=== PATIENT | male | born 1985 | race African-American/Black ===

== ENCOUNTER 2018-11-19 21:31 | Inpatient (IN) | payer MEDICAID ==
[~2018-11-19] VITALS: Ht 180.3 cm; Wt 70.3 kg
[2018-11-19] MEDS ORDERED: HYDROmorphone 1mg/ml Carpuject IVP ONE (22:00)
[2018-11-19] MEDS ORDERED: Isovue-300 100ml vial INJ PRN (22:00)
[2018-11-19] MEDS ORDERED: Metoclopramide 10mg/2ml Inj IVP ONE (22:00)
[2018-11-19] MEDS ORDERED: DiphenhydrAMINE 50mg/ml Inj IVP ONE (22:00)
[2018-11-19 22:10] VITALS: BP 108/67
--- NOTE | 2018-11-19 22:30 | NUR ---
ER Nurse Note: Pt came from home c/o RLQ pain associated with n/v since 11/17. Pt stated he has an ostomy on the LT mid abd; output is orange tinged lquid stool. Pt has a fistula on the RT side of abd; patent. Pt stated 02/15 pain. Will continue to montior.
[2018-11-19 22:53] LABS: BASOPHILS % (AUTO) 1.3 % (0.0-2.0); HEMOGLOBIN 11.4 G/DL (14.2-18.0); LYMPHOCYTES % (AUTO) 37.2 % (20.0-45.0); MEAN CORPUSCULAR VOLUME 82 FL (80-99); MONOCYTES % (AUTO) 4.8 % (1.0-10.0); NEUTROPHILS % (AUTO) 53.6 % (45.0-75.0); PLATELET COUNT 221 K/UL (150-450); RED BLOOD COUNT 4.28 M/UL (4.70-6.10); RED CELL DISTRIBUTION WIDTH 17.6 % (11.6-14.8); WHITE BLOOD COUNT 6.5 K/UL (4.8-10.8)
[2018-11-19 23:05] LABS: ANION GAP 3 mmol/L (5-15); BLOOD UREA NITROGEN 7 mg/dL (7-18); CALCIUM 9.1 MG/DL (8.5-10.1); CARBON DIOXIDE 28 MMOL/L (21-32); CHLORIDE 108 MMOL/L (98-107); CREATININE 0.8 MG/DL (0.55-1.30); POTASSIUM 3.3 MMOL/L (3.5-5.1); SODIUM 139 MMOL/L (136-145)
[2018-11-19 23:09] LABS: ALANINE AMINOTRANSFERASE 22 U/L (12-78); ALBUMIN 3.2 G/DL (3.4-5.0); ALBUMIN/GLOBULIN RATIO 0.7 (1.0-2.7); ALKALINE PHOSPHATASE 114 U/L (46-116); ASPARTATE AMINO TRANSFERASE 17 U/L (15-37); BILIRUBIN,TOTAL 0.3 MG/DL (0.2-1.0)
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
--- NOTE | 2018-11-19 23:18 | NUR ---
ER Nurse Note: Pt refused to drink contrast for CT of stomach; aware. Verbal order for CT without contrast; Chapo at radiology contacted and aware. Pt refused urine as well. Pt asleep; VSS. IV fluids infusing. Will continue to montior.
[2018-11-20] MEDS ORDERED: HYDROmorphone 1 MG in NS 55 ML IV ONE (01:00)
[2018-11-20 01:08] VITALS: BP 100/70
--- NOTE | 2018-11-20 01:30 | NUR ---
ER Nurse Note: Pt vomited 100 cc of orange emesis, notifed, meds prescribed. Pt provided urine; sent to lab. All meds given, tolerating well. Pt resting in bed, no signs of distress, VSS. Pt asleep. All safety measures met; will continue to montior.
[2018-11-20 01:42] LABS: APPEARANCE,URINE CLEAR; BILIRUBIN, URINE NEGATIVE (NEGATIVE); COLOR,URINE PALE YELLOW; GLUCOSE, URINE (UA) NEGATIVE (NEGATIVE); KETONES,URINE NEGATIVE (NEGATIVE); LEUKOCYTE ESTERASE ,URINE NEGATIVE (NEGATIVE); NITRITE,URINE NEGATIVE (NEGATIVE); PH,URINE 6 (4.5-8.0); PROTEIN,URINE NEGATIVE (NEGATIVE); UROBILINOGEN,URINE NORMAL MG/DL (0.0-1.0)
[2018-11-20 02:35] VITALS: BP 110/74
--- NOTE | 2018-11-20 02:35 | NUR ---
ER Nurse Note: Report given to NAVDEEP Olivo in [place] for continuity of care. All orders completed per ERMD orders. Pt refused VRE/CRE; able to swab for MRSA. Pt a&ox4, VSS, no signs of distress. Pt ambulatory. All belongings accounted for, and taken with pt.
[2018-11-20 03:01] VITALS: BP 98/62
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
[2018-11-20] MEDS ORDERED: HYDROcodone/Acetamin 5/325 tab ORAL PRN (03:45)
[2018-11-20] MEDS ORDERED: D5 1/2NS w/KCl 20mEq 1,000 ML IV SCH (03:45)
--- NOTE | 2018-11-20 04:30 | NUR ---
NURSE NOTES: Pt refuses to take 40meq KCL tablet PO and [place] for pain po. Pt states that he wants Dilaudid first and he does not want any oral medications. D5 1/2Ns with 20mEq KCl running at 75ml/hr.
--- NOTE | 2018-11-20 04:51 | NUR ---
NURSE NOTES: Pt is asleep, no acute distress noted.
--- NOTE | 2018-11-20 06:12 | NUR ---
NURSE NOTES: Pt refuses blood draw for labs.
--- NOTE | 2018-11-20 06:20 | NUR ---
NURSE NOTE: Pt is resistive to care. Pt wants Dilaudid as pain medication first before he will take any other Meds. Pt is irritable. Pt states he has severe pain. Dr. Mansfield is called and message left explaining pt's request. Awaiting call back.
--- NOTE | 2018-11-20 06:30 | NUR ---
NURSE NOTES: Dr. Mansfield called back, no new orders received.
--- NOTE | 2018-11-20 07:30 | NUR ---
NURSE NOTES: Pt finally agreed to take [place] 5mg PO for pain.
--- NOTE | 2018-11-20 07:31 | NUR ---
HAND-OFF: Report given to Valerie Garrido RN.
--- NOTE | 2018-11-20 08:00 | NUR ---
NURSE NOTES: Received report from Geovani RN. Patient is awake alert and oriented during rounds, appears calm, medicated with [place] by nightshift nurse, denies N/V. Updated on plan of care for the day. Side rails upx2, bed low and locked, call light in reach. Will continue to monitor.
--- NOTE | 2018-11-20 10:14 | Diagnostic Imaging Report ---
Indication: Abdominal pain for 3 days Technique: Spiral acquisitions obtained through the abdomen and pelvis. No oral contrast utilized, per patient preference No IV contrast utilized, per patient preference.. Multiplanar reconstructions were generated. Total dose length product 494.52 mGycm. CTDIvol(s) 9.5 mGy. Dose reduction achieved using automated exposure control Comparison: None Findings: Exam is very limited the absence of enteric contrast. Scattered foci of gas are seen within the cutaneous tissues of the midline with suggestion of soft tissue tract tract communicating to the deeper bowel. There is a stoma in the left lower quadrant. This is reportedly a colostomy. Extensive surgical anastomoses are present deep to the stoma. There is also a Ally procedure demonstrated. Small bowel loops at the anastomosis are mildly dilated. Other small bowel loops are nondilated. The distal esophagus, stomach, duodenum are unremarkable. No free or loculated intraperitoneal gas or fluid is evident. Lack of IV contrast limits assessment of solid organs. The liver is unremarkable. The gallbladder is nondistended. No definite stones. No biliary ductal dilatation. The pancreas, spleen, adrenals, kidneys are unremarkable. No retroperitoneal or mesenteric mass or adenopathy. The included lung bases are clear. The bones are unremarkable. Impression: Very limited exam, as described Post surgical changes, as described Midline subcutaneous abnormality extending into the abdomen. Patient reportedly has a fistula at this location. No evidence of bowel obstruction or abnormal fluid collection This agrees with the preliminary interpretation provided overnight by [facility] teleradiology service. The CT scanner at [facility] is accredited by the [employer] and the scans are performed using protocols designed to limit radiation exposure to as low as reasonably achievable to attain images of sufficient resolution adequate for diagnostic evaluation.
--- NOTE | 2018-11-20 10:49 | NUR ---
AMA: Patient left AMA. Educated patient on the risks of leaving AMA including worsening of condition and . Patient stated that he understands the risks but still insisted on leaving. Removed IV intact. Patient ambulated off unit. Called the office of Dr. Mansfield and left message informing MD that patient left AMA. SEE AMA FORM.
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
--- NOTE | 2018-11-20 14:11 | NUR ---
CASE MANAGEMENT: INITIAL REVIEW 33 YO M PRESENTED TO OUR ED FROM HOME CC: ABD PAIN PMHx: COLOSTOMY. SI:ABD PAIN T 98.2 HR 85 RR 20 B/P 108/67 SATS 100% ON RA K 3.3 CL 108 IS: REGLAN IV X1 ZOFRAN IV X1 DILAUDID IV X1 NS BOLUS X1 BENADRYL IV X1 PATIENT ADMITTED TO MED/SURG 11/20/2018 @ 0129 DCP: PATIENT TO BE DISCHARGED TO HOME ONCE MEDICALLY CLEARED. PLAN OF CARE: CT ABD/PELVIS Impression: Very limited exam, as described Post surgical changes, as described Midline subcutaneous abnormality extending into the abdomen. Patient reportedly has a fistula at this location. Addendum: 11/20/18 at 1424 by Adriane Raygoza CM INTERQUAL MET
--- NOTE | 2018-11-21 19:35 | History & Physical ---
History and Physical History & Physicial patient left hospital prior my visit. Daniel Mansfield MD Nov 21, 2018 19:35
== END 2018-11-20 10:05 | disposition left against medical advice (07) | DRG 251 ==
LOC: EMR 22:10 → 3E 11-20 01:29 → EDBEDREQ 11-20 01:39
DX: R10.9 Unspecified abdominal pain (principal); E87.6 Hypokalemia; Z93.3 Colostomy status; Z88.6 Allergy status to analgesic agent; W34.00XS Accidental discharge from unspecified firearms or gun, sequela
CPT/HCPCS: 36415; 74176; 80053; 81003; 83690; 85025; 87081; 96361; 96374; 96375; 99285; J2405; J2765

== ENCOUNTER 2018-11-23 10:16 | Emergency (ER) | payer MEDICAID ==
[~2018-11-23] VITALS: Ht 180.3 cm; Wt 70.3 kg
[2018-11-23 10:52] VITALS: BP 116/58
--- NOTE | 2018-11-23 10:55 | NUR ---
ED Nurse Note: pt walked in to ER from home due to N/V x 3 days. pt aao x4 and ambulatory. skin clean and intact. calm and cooperative.
[2018-11-23] MEDS ORDERED: HYDROmorphone 1mg/ml Carpuject IM ONE (11:30)
--- NOTE | 2018-11-23 11:46 | NUR ---
ED Nurse Note: pt requested for Zofran pill instead of IM injection due to fear of needle. ERMD made aware.
[2018-11-23] MEDS ORDERED: ONDANSETRON ODT4 MG BC (12:14)
[2018-11-23 12:21] VITALS: BP 116/58
--- NOTE | 2018-11-23 12:22 | NUR ---
ER DISCHARGE NOTE: Patient is cleared to be discharged per ERMD, pt is aox4, on room air, with stable vital signs. pt was given dc and prescription instructions, pt was able to verbalize understanding, pt id band removed. pt is able to ambulate with steady gait. pt took all belongings.
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
== END 2018-11-23 12:22 | disposition home or self-care (01) ==
LOC: EMR 11:28
DX: R10.9 Unspecified abdominal pain (principal); R11.2 Nausea with vomiting, unspecified; Z88.6 Allergy status to analgesic agent
CPT/HCPCS: 96372; 99283; J1170; J2405

== ENCOUNTER 2018-12-14 03:23 | Emergency (ER) | payer MEDICAID ==
[~2018-12-14] VITALS: Ht 180.3 cm; Wt 70.3 kg
[~2018-12-14 03:23] MED LIST: ONDANSETRON ODT4 MG BC
[2018-12-14 03:59] VITALS: BP 110/70
--- NOTE | 2018-12-14 03:59 | NUR ---
ED Nurse Note: Pt walked in to ER c/o pain 8/10 to ABD. pt noted with ileostomy to left lower Abd and a fitula to right ABD. pt is alert x4, ambulatory, VSS
[2018-12-14] MEDS ORDERED: Ketorolac 30mg Inj ONE (04:13)
[2018-12-14] MEDS ORDERED: Isovue-300 100ml vial INJ PRN (05:00)
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
[2018-12-14 05:21] LABS: BASOPHILS % (AUTO) 1.3 % (0.0-2.0); EOSINOPHILS % (AUTO) 5.1 % (0.0-3.0); HEMATOCRIT 38.9 % (42.0-52.0); HEMOGLOBIN 12.4 G/DL (14.2-18.0); LYMPHOCYTES % (AUTO) 35.4 % (20.0-45.0); MEAN CORPUSCULAR VOLUME 83 FL (80-99); NEUTROPHILS % (AUTO) 50.2 % (45.0-75.0); PLATELET COUNT 214 K/UL (150-450); RED BLOOD COUNT 4.69 M/UL (4.70-6.10); RED CELL DISTRIBUTION WIDTH 16.1 % (11.6-14.8); WHITE BLOOD COUNT 6.8 K/UL (4.8-10.8)
[2018-12-14 05:29] LABS: ANION GAP 5 mmol/L (5-15); BLOOD UREA NITROGEN 8 mg/dL (7-18); CALCIUM 9.3 MG/DL (8.5-10.1); CARBON DIOXIDE 30 MMOL/L (21-32); CHLORIDE 105 MMOL/L (98-107); CREATININE 1.2 MG/DL (0.55-1.30); POTASSIUM 3.6 MMOL/L (3.5-5.1); SODIUM 140 MMOL/L (136-145)
[2018-12-14 05:31] LABS: ALANINE AMINOTRANSFERASE 37 U/L (12-78); ALBUMIN 3.5 G/DL (3.4-5.0); ALBUMIN/GLOBULIN RATIO 0.7 (1.0-2.7); ALKALINE PHOSPHATASE 119 U/L (46-116); ASPARTATE AMINO TRANSFERASE 25 U/L (15-37); BILIRUBIN,TOTAL 0.3 MG/DL (0.2-1.0)
[2018-12-14] MEDS ORDERED: Dicyclomine HCl 10mg/5ml oral soln ORAL ONE (06:00)
[2018-12-14] MEDS ORDERED: Dexamethasone 4mg/ml vial IVP ONE (06:00)
[2018-12-14] MEDS ORDERED: HYDROmorphone 1 MG, DiphenhydrAMINE 25 MG in NS 55 ML IV ONE (06:15)
[2018-12-14 06:16] VITALS: BP 112/73
[2018-12-14 06:36] LABS: APPEARANCE,URINE CLEAR; BILIRUBIN, URINE NEGATIVE (NEGATIVE); GLUCOSE, URINE (UA) NEGATIVE (NEGATIVE); KETONES,URINE 1+ (NEGATIVE); LEUKOCYTE ESTERASE ,URINE 1+ (NEGATIVE); NITRITE,URINE NEGATIVE (NEGATIVE); PH,URINE 5 (4.5-8.0); PROTEIN,URINE 2+ (NEGATIVE); UROBILINOGEN,URINE 1 MG/DL (0.0-1.0)
[2018-12-14 06:51] LABS: COLOR,URINE YELLOW
--- NOTE | 2018-12-14 07:10 | NUR ---
HAND-OFF: Report given to NAVDEEP stevenson .
[2018-12-14 07:17] VITALS: BP 82/47
--- NOTE | 2018-12-14 07:19 | NUR ---
ED Nurse Note: BP 82/47 last, ERMD aware.
[2018-12-14] MEDS ORDERED: ONDANSETRON ODT4 MG BC (08:23)
[2018-12-14 08:33] VITALS: BP 101/56
--- NOTE | 2018-12-14 08:33 | NUR ---
AMA: SEE AMA FORM.
--- NOTE | 2018-12-14 08:35 | NUR ---
ER DISCHARGE NOTE: patient signed the AMA foam. pt is aox4, on room air, with stable vital signs. pt was given dc and prescription instructions, pt was able to verbalize understanding, pt id band and iv site removed without complications. pt is able to ambulate with steady gait. pt took all belongings.
== END 2018-12-14 08:48 | disposition left against medical advice (07) ==
LOC: EMR 03:53 → EDBEDREQ 06:57 → CANBEDREQ 08:34 → EMR 08:48
DX: R10.9 Unspecified abdominal pain (principal); Z88.5 Allergy status to narcotic agent; Z90.49 Acquired absence of other specified parts of digestive tract; Z93.2 Ileostomy status
CPT/HCPCS: 36415; 80053; 80307; 81003; 83690; 84484; 85025; 85610; 85730; 96374; 96375; 99284; J1100; J1170; J1200; J1885; J2405; J7040; S0028

== ENCOUNTER 2019-01-01 16:13 | Emergency (ER) | payer MEDICAID ==
[~2019-01-01] VITALS: Ht 180.3 cm; Wt 66.2 kg
[2019-01-01] MEDS ORDERED: PERCOCET 5-3251 EACH ORAL (16:27)
[2019-01-01] MEDS ORDERED: PERCOCET 10-321 EAC1 ORAL (16:28)
[2019-01-01 16:35] VITALS: BP 103/63
--- NOTE | 2019-01-01 16:35 | NUR ---
ED Nurse Note: Patient walked into ER due to medication refil. Stated that has colostomy bag, and want refil Percocet. AAO x4, VSS at this time, skin is dry warm to touch.
--- NOTE | 2019-01-01 16:45 | Emergency Room Report ---
History of Present Illness General Chief Complaint: Medication Refill Source: Patient (Mariel Schmid) Present Illness HPI 33-year-old male with unknown history of colon complications, here requesting a refill on his colostomy bags as well as Percocet. Patient reports that he used to have a primary care in [place] however has switched his living location and is looking for new primary care. Based on cures vision has been getting hydrocodone and oxycodone from different providers and not yet from established provider. Patient reports that he usually gets Dilaudid in the hospital and discharged with Percocets. Patient has drug-seeking behavior. Patient wants me to call his primary care provider in [place] and asked her to explain to me patient's past medical history. Reports that primary care did not want to write for Percocet. Patient reports that he does not want to drive to [place] for getting the original copy of Percocet if his former primary care right side. Patient is demanding. Walking comfortably and in no distress. Denies chest pain, shortness of breath, palpitation, abdominal pain, nausea vomiting. Does not allow for abdominal examination. (Mariel Schmid) Allergies: Coded Allergies: MORPHINE (Verified Allergy, Unknown, 01/01/19) Patient History Past Medical History: see triage record Past Surgical History: unable to obtain Pertinent Family History: none Immunizations: UTD Reviewed Nursing Documentation: PMH: Agreed; PSxH: Agreed (Mariel Schmid) Nursing Documentation-PMH Past Medical History: No History, Except For Hx Cancer: No Hx Gastrointestinal Problems: Yes - COLECTOMY, GI SURGERY Hx Neurological Problems: No (Mariel Schmid) Review of Systems All Other Systems: negative except mentioned in HPI (Mariel Schmid) Physical Exam Vital Signs Date Time Temp Pulse Resp B/P (MAP) Pulse Ox O2 Delivery O2 Flow Rate FiO2 01/01/19 16:20 98.2 92 16 103/63 (76) 100 Room Air Sp02 EP Interpretation: reviewed, normal General Appearance: no apparent distress, alert, GCS 15, non-toxic Head: normocephalic, atraumatic Eyes: bilateral eye normal inspection, bilateral eye PERRL ENT: hearing grossly normal, normal pharynx, no angioedema, normal voice Neck: full range of motion, supple/symm/no masses Respiratory: chest non-tender, lungs clear, normal breath sounds, no rhonchi, no wheezing, speaking full sentences Cardiovascular #1: regular rate, rhythm, no edema, no murmur, normal capillary refill Genitourinary: no CVA tenderness Musculoskeletal: back normal, gait/station normal, normal range of motion, non- tender, calf tenderness Neurologic: alert, oriented x3, responsive, motor strength/tone normal, sensory intact, speech normal Psychiatric: judgement/insight normal, memory normal, mood/affect normal, no suicidal/homicidal ideation Skin: no rash Lymphatic: no adenopathy (Mariel Schmid) Medical Decision Making PA Attestation All diagnoses and treatment plans were reviewed and discussed with my supervising physician Dr. Armstrong (Mariel Schmid) Diagnostic Impression: Primary Impression: Encounter for medication refill Additional Impressions: Colostomy care Drug-seeking behavior ER Course 33-year-old male with unknown history of colon complications, here requesting a refill on his colostomy bags as well as Percocet. Patient reports that he used to have a primary care in [place] however has switched his living location and is looking for new primary care. Based on cures vision has been getting hydrocodone and oxycodone from different providers and not yet from established provider. Patient reports that he usually gets Dilaudid in the hospital and discharged with Percocets. Patient has drug-seeking behavior. Patient wants me to call his primary care provider in [place] and asked her to explain to me patient's past medical history. Reports that primary care did not want to write for Percocet. Patient reports that he does not want to drive to [place] for getting the original copy of Percocet if his former primary care right side. Patient is demanding. Walking comfortably and in no distress. Denies chest pain, shortness of breath, palpitation, abdominal pain, nausea vomiting. Does not allow for abdominal examination. Ddx considered but are not limited to: generalized anxiety disorder, panic attack, depression with psychotic features, bipolar disorder, drug overdose , drug-seeking behavior Vital signs: are WNL, pt. is afebrile H&PE are most consistent with: Medication refill for controlled substance, drug -seeking behavior ORDERS: Colostomy bag, ibuprofen ED INTERVENTIONS: None required at this time. DISCHARGE: At this time pt. is stable for d/c to home. Will provide printed patient care instructions, and any necessary prescriptions. Care plan and follow up instructions have been discussed with the patient prior to discharge. I advised the patient to follow-up with a primary care provider and establish a specialist patient cannot receive any refills of controlled substances here at based on his cures history and his drug-seeking behavior patient was stable at time of discharge (Mariel Schmid) ER Course Patient discussed in detail. Agree with treatment plan. (Lokesh Armstrong MD) Last Vital Signs Date Time Temp Pulse Resp B/P (MAP) Pulse Ox O2 Delivery O2 Flow Rate FiO2 01/01/19 16:20 98.2 92 16 103/63 (76) 100 Room Air (Mariel Schmid) Disposition: HOME, SELF-CARE Condition: Stable Scripts Ibuprofen (Ibu) 800 Mg Tablet 800 MG PO TID, #30 TAB Prov: Mariel Schmid 01/01/19 Colostomy Bag, Non-Sterile (Esteem Closed Pouch) 1 Each Each EACH , #5 Prov: Mariel Schmid 01/01/19 Patient Instructions: Medicine Refill at the Emergency Department Mariel Schmid Jan 01, 2019 16:45 Lokesh Armstrong MD Jan 02, 2019 06:49
[2019-01-01] MEDS ORDERED: [UNRECOGNIZED DRUG - SUPPLY] MC (16:47)
[2019-01-01] MEDS ORDERED: IBU800 MG PO (16:47)
[2019-01-01 16:56] VITALS: BP 103/63
--- NOTE | 2019-01-01 16:58 | NUR ---
ED Nurse Note: Pt cleared by health care Provider for discharge. DC instructions/prescription was given and explained to pt and verbalized understanding of teachings. All medical deviecs such as ID band removed. Pt is AAO x4, ambulatory and left with all personal belongings.
== END 2019-01-01 17:00 | disposition home or self-care (01) ==
LOC: EMR 16:58
DX: Z43.3 Encounter for attention to colostomy (principal); Z76.5 Malingerer [conscious simulation]; Z76.0 Encounter for issue of repeat prescription; Z88.6 Allergy status to analgesic agent
CPT/HCPCS: 99282